=== PATIENT | female | born 2000 | race Caucasian/White ===

== ENCOUNTER 2020-04-02 14:16 | Outpatient (REF) | payer MEDICAID, SELFPAY ==
--- NOTE | 2020-04-02 16:04 | MHC.AU.P13 ---
Hearing Instrument Fitting- Adult- Left Ear Date of Visit: 04/02/20 Hearing Instrument(s) Dispensed: Left Ear: Ginseng Farmer: SHERPA assistant Model: CareinSynceo M70-R Serial Number: [id number] Warranty: 06/16/2023 Battery Size: Rechargeable Color: Black Health Information Director: 0M Type of Dome: Small Vented Type of Wax Guard: CeruDisk Summary of Fitting: Feedback associate manager was run. Target gain set to 80%. Occlusion compensation set to Medium. Patient reported that the volume was comfortable. She reported her voice sounded strange, but thinks it may be that she just needs to get used to having sound in that ear again. Hearing aid care and maintenance were discussed and practiced. Hearing aid was paired to the elzbieta on her phone. Recommendations: Recommendations: Please call our clinic with any questions or concerns. Recommendations: Patient is scheduled to have a remote support session on 04/23/2020 for hearing aid follow-up. Diagnosis Code(s): Primary Diagnosis: H90.72 Mixed HL, Unilateral, Left Ear, W/Unrestricted Contralateral Secondary Diagnosis: N/A Services Performed: Hearing Instrument Services: [place] 3 L Hearing Aid Dispensing: Monaural Dispensing Fee- Left Ear Fitting (Other): Fitting/Orientation/Checking of Hearing Aid Signature: Provider: Carlos Glynn, [facility]
== END 2020-04-02 14:17 | disposition home or self-care (01) ==
LOC: HO.HAP 14:16
PROVIDERS: Visit Provider Family Medicine
DX: Z46.1 Encounter for fitting and adjustment of hearing aid (principal); H90.72 Mixed conductive and sensorineural hearing loss, unilateral, left ear, with unrestricted hearing on the contralateral side
CPT/HCPCS: 92700; V5011; V5241; V5257

== ENCOUNTER 2020-04-21 11:51 | Outpatient (REF) | payer MEDICAID, SELFPAY | END 2020-04-21 11:52 | disposition home or self-care (01) | LOC: HO.LAB 11:51 | PROVIDERS: Visit Provider Internal Medicine | DX: Z20.828 Contact with and (suspected) exposure to other viral communicable diseases (principal) | CPT/HCPCS: C9803; U0003 ==

== ENCOUNTER 2020-04-22 15:02 | Outpatient (REF) | payer MEDICAID, SELFPAY ==
[2020-04-22 16:16] LABS: MANUAL DIFF FLAG NO
[2020-04-22 16:17] LABS: Basophils Absolute Auto 0.1 X10*3/uL (0.0-0.2); Basophils Percent Auto 0.9 % (0-2); Eosinophils Absolute Auto 0.4 X10*3/uL (0.0-0.4); Eosinophils Percent Auto 4.9 % (0-4); Hematocrit 43.8 % (37-47); Hemoglobin 14.4 g/dl (12.0-16.0); Imm Gran Abs Auto 0.03 X10*3/uL (0.00-0.03); Imm Gran Pct Auto 0.3 % (0.0-0.4); Lymphocytes Absolute Auto 1.8 X10*3/uL (1.2-4.9); Lymphocytes Percent Auto 20.8 % (20-40); Mean Corpuscular HGB Conc 32.9 g/dl (31.0-35.0); Mean Corpuscular Hemoglobin 28.3 pg (27.0-33.0); Mean Corpuscular Volume 86.1 fL (80-98); Mean Platelet Volume 11.7 fL (9.4-12.3); Monocytes Absolute Auto 0.4 X10*3/uL (0.1-1.2); Monocytes Percent Auto 4.5 % (2-11); Neutrophils Absolute Auto 6.1 X10*3/uL (2.0-8.3); Neutrophils Percent Auto 68.6 % (45-73); Platelet Count 179 X10*3/uL (160-400); Red Blood Count 5.09 X10*6/uL (4.20-5.50); Red Cell Distribution Width 13.7 % (11.0-16.0); White Blood Count 8.9 X10*3/uL (4.8-10.8)
== END 2020-04-22 15:03 | disposition home or self-care (01) ==
LOC: HO.LAB 15:02
PROVIDERS: Visit Provider Family Medicine
DX: R07.81 Pleurodynia (principal)
CPT/HCPCS: 36415; 85025; 87040

== ENCOUNTER 2020-04-23 15:54 | Outpatient (REF) | payer MEDICAID, SELFPAY ==
--- NOTE | 2020-04-24 13:50 | MHC.AU.P13 ---
Hearing Instrument Follow-Up Date of Visit: 04/24/2020 Left Ear: Content Developer: Phonak Model: Audeo M70-R Serial Number: [id number] Warranty: 06/16/2023 Battery Size: Rechargeable Color: Black Ui Software Developer: 0M Type of Dome: Small Vented Type of Wax Guard: CeruDisk Dispensed By: [facility] Follow-Up Summary: Today's appointment was a Remote Support session. There were no technical issues connecting with the patient today. Patient discussed that she does not feel the hearing aid has been beneficial. She feels it has a strange, hard to describe sound quality that can be distracting. Others have reported she is also still talking loudly, even when she does not think she is. Several adjustments were attempted, such as increasing target or raising/lowering high and low frequency gain separately. We could not find any combination that got rid of the strange sound quality; therefore, programming was kept the same for now. Discussed the nature of patient's sudden single-sided hearing loss, and how it may be that there is too much distortion from the hearing loss itself to use a traditional hearing aid. A CROS system may need to be considered. Patient discussed that when she first developed the sudden left-sided hearing loss in October 2019, she had recently developed a viral illness. It was suspected that she had COVID-19; however, testing was not readily available at the time to confirm. She reports that she has heard of some case studies where COVID patients developed sudden single-sided sensorineural hearing loss, and she questions if this is what happened to her. Steroids were attempted, but did not work. She had her hearing tested several times between October and February, and reports that each test revealed a slight progression of hearing loss from the test before. After more discussion, we decided the patient should come back in person for a quick hearing aid follow-up/hearing re-check, as a change in hearing could explain why she has not been finding the hearing aid beneficial. I can also listen to the hearing aid to make sure it is not a technical issue. Depending on the results of the re-check, we can discuss if further trial/adjustment of the current instrument is needed, or if a different system such as a CROS should be tried. Recommendations: An follow-up was scheduled to monitor progress. Diagnosis Code(s): Primary Diagnosis: H90.72 Mixed HL, Unilateral, Left Ear, W/Unrestricted Contralateral Services Performed: Assorted Hearing Aid Service: No Charge Visit Signature: Provider: Carlos Glynn, [facility]
== END 2020-04-23 15:55 | disposition home or self-care (01) ==
LOC: HO.HAP 15:54
PROVIDERS: PCP Family Medicine; Visit Provider Family Medicine
DX: Z13.89 Encounter for screening for other disorder (principal)
CPT/HCPCS: 92700

== ENCOUNTER 2020-08-15 15:13 | Outpatient (REF) | payer MEDICAID, SELFPAY ==
--- NOTE | 2020-08-18 15:19 | MHC.AU.P13 ---
Hearing Instrument Follow-Up Date of Visit: 08/15/20 Left Ear: Jewelry Mold Maker: Phonak Model: Carloseo M70-R Serial Number: [id number] RepairWarranty: 06/16/2023 Battery Size: Rechargeable Color: Black Animal Biologist: 0M Type of Dome: Small Vented Type of Wax Guard: CeruDisk Follow-Up Summary: Patient arrived for follow-up. When last talking to the patient over remote support, there was a question if there was a change in hearing, as she was not getting much benefit from the hearing aid. She reported that she could not always tell a large difference when she took it off. A quick hearing re-check was performed today. In the left ear, 3-8 kHz has decreased slightly and 500-1000 Hz has improved slightly. Word discrimination was 80% on 02/26/2020 and was 56% today. Patient reports that she does not always realize the benefit while wearing the instrument, but does notice a difference when she takes it off. She does not feel it helps with clarity, but helps with localizing sound around her. She finds that it can have an echo-y quality. Updated programming with today's thresholds. Tried switching to an open dome instead of a vented dome, but patient reported the sound quality was worse. Switched back to vented dome. Realistic expectation discussed. Discussed that the word discrimination/clarity in the left ear is poor, and hearing aids alone cannot fix that. The hearing aid will mostly help her left-sided awareness, environmental perception, and localization, rather than improve word understanding. Discussed the possibility of a CROS system, but patient does not feel that would be as beneficial as a left-sided hearing aid. There are unfortunately few options for single-sided hearing loss at this time, apart from a hearing aid, CROS system, or BAHA (which would require surgery). Patient would likely not yet qualify for a cochlear implant. Patient understands the limitations and expectations. Recommendations: Due to changes in hearing, audiological re-evaluation in 6 months is recommended (either at our clinic or at ENT). Hearing aid follow-up for more adjustments or maintenance as needed. Diagnosis Code(s): Primary Diagnosis: H90.42 SNHL Unilateral Left Side, W/Unrestricted Contralateral Hearing Signature: Provider: Carlos Glynn, [facility]
== END 2020-08-15 15:14 | disposition home or self-care (01) ==
LOC: HO.HAP 15:13
PROVIDERS: Visit Provider Family Medicine
DX: Z13.89 Encounter for screening for other disorder (principal)

== ENCOUNTER 2020-08-25 11:22 | Outpatient (REF) | payer MEDICAID, SELFPAY | END 2020-08-25 11:23 | disposition home or self-care (01) | LOC: HO.HAP 11:22 | PROVIDERS: Visit Provider Family Medicine | DX: Z13.89 Encounter for screening for other disorder (principal) ==

== ENCOUNTER 2020-11-25 14:19 | Outpatient (REF) | payer SELFPAY | END 2020-11-25 14:20 | disposition home or self-care (01) | LOC: HO.HAP 14:19 | PROVIDERS: Visit Provider Family Medicine | DX: Z13.89 Encounter for screening for other disorder (principal) ==

== ENCOUNTER 2020-12-26 16:33 | Outpatient (REF) | payer SELFPAY | END 2020-12-26 16:34 | disposition home or self-care (01) | LOC: HO.HAP 16:33 | PROVIDERS: Visit Provider Family Medicine | DX: H90.42 Sensorineural hearing loss, unilateral, left ear, with unrestricted hearing on the contralateral side (principal) | CPT/HCPCS: V5267 ==

== ENCOUNTER 2021-03-12 14:03 | Outpatient (REF) | payer MEDICARE, MEDICAID, SELFPAY ==
[2021-03-12 14:12] LABS: MANUAL DIFF FLAG NO
[2021-03-12 14:21] LABS: Basophils Absolute Auto 0.1 X10*3/uL (0.0-0.2); Eosinophils Absolute Auto 0.6 X10*3/uL (0.0-0.4); Eosinophils Percent Auto 7.8 % (0-4); Hematocrit 41.9 % (37-47); Hemoglobin 14.1 g/dl (12.0-16.0); Imm Gran Abs Auto 0.01 X10*3/uL (0.00-0.03); Imm Gran Pct Auto 0.1 % (0.0-0.4); Lymphocytes Absolute Auto 2.5 X10*3/uL (1.2-4.9); Lymphocytes Percent Auto 30.9 % (20-40); Mean Corpuscular HGB Conc 33.7 g/dl (31.0-35.0); Mean Corpuscular Hemoglobin 29.3 pg (27.0-33.0); Mean Corpuscular Volume 87.1 fL (80-98); Mean Platelet Volume 12.1 fL (9.4-12.3); Monocytes Absolute Auto 0.6 X10*3/uL (0.1-1.2); Monocytes Percent Auto 7.2 % (2-11); Neutrophils Absolute Auto 4.4 X10*3/uL (2.0-8.3); Platelet Count 191 X10*3/uL (160-400); Red Blood Count 4.81 X10*6/uL (4.20-5.50); Red Cell Distribution Width 13.8 % (11.0-16.0); White Blood Count 8.2 X10*3/uL (4.8-10.8)
== END 2021-03-12 14:04 | disposition home or self-care (01) ==
LOC: HO.LNP 14:03
PROVIDERS: Visit Provider Internal Medicine Gastroenterology
DX: K85.90 Acute pancreatitis without necrosis or infection, unspecified (principal); E86.0 Dehydration
CPT/HCPCS: 82040; 83735; 84100; 84132; 84134; 84450; 84478; 85025

== ENCOUNTER 2021-04-24 12:36 | Outpatient (REF) | payer MEDICARE, MEDICAID, SELFPAY ==
--- NOTE | 2021-04-24 15:39 | MHC.AU.FUL ---
Hearing Instrument Follow-Up Date of Visit: 04/24/21 Left Ear: Promotion Officer: Phonak Model: Audeo M70-R Serial Number: [id number] Repair Warranty: 06/16/2023 Battery Size: Rechargeable Color: Black Orange Picker Machine Operator: 0M Type of Dome: Small Vented Type of Wax Guard: CeruDisk Dispensed By: [facility] Follow-Up Summary: Patient reports that for the past few weeks, her hearing aid has been randomly turning off while she wears it. It does not give any warning, such as a low battery beep, when this happens. When it has happened, she has checked the battery life by placing it in the driver helper, and the indicator lights always show there was still ample charge left on it. She knows it is shutting down (as opposed to have a faulty quality assurance/r&d lab technician or other issue), as when it occurs she will press the button and the indicator light blinks green/start-up teddy plays. It happened again while we were talking in the office today. I tried to manually restart it, and it would turn on. It will be sent to [employer] for repair. Recommendations: Patient will be contacted when materials have arrived. Diagnosis Code(s): Primary Diagnosis: H90.42 SNHL Unilateral Left Side, W/Unrestricted Contralateral Hearing Signature: Provider: Carlos Glynn, [facility]
== END 2021-04-24 12:37 | disposition home or self-care (01) ==
LOC: HO.HAP 12:36
PROVIDERS: Visit Provider Family Medicine
DX: Z46.1 Encounter for fitting and adjustment of hearing aid (principal); H90.42 Sensorineural hearing loss, unilateral, left ear, with unrestricted hearing on the contralateral side
CPT/HCPCS: 92592

== ENCOUNTER 2021-05-13 15:01 | Outpatient (REF) | payer MEDICARE, MEDICAID, SELFPAY | END 2021-05-13 15:02 | disposition home or self-care (01) | LOC: HO.HAP 15:01 | PROVIDERS: Visit Provider Family Medicine | DX: Z13.89 Encounter for screening for other disorder (principal) ==

== ENCOUNTER 2021-09-15 16:18 | Outpatient (REF) | payer SELFPAY | END 2021-09-15 16:19 | disposition home or self-care (01) | LOC: HO.HAP 16:18 | PROVIDERS: Visit Provider Family Medicine | DX: Z46.1 Encounter for fitting and adjustment of hearing aid (principal); H90.42 Sensorineural hearing loss, unilateral, left ear, with unrestricted hearing on the contralateral side | CPT/HCPCS: V5267 ==

== ENCOUNTER 2022-03-04 13:02 | Emergency (ER) | payer MEDICARE, MEDICAID, SELFPAY ==
--- NOTE | ~2022-03-04 | IR_ITS ---
EXAMINATION: GASTROSTOMY TUBE REPLACEMENT CLINICAL INFORMATION: Gastrostomy tube fell out last night. Difficulty in replacing catheter in the emergency room. COMPARISON: None. TECHNIQUE: Fluoroscopic-guided replacement of gastrostomy tube. CONSCIOUS SEDATION: The patient received intravenous conscious sedation under my direct supervision. A registered nurse monitored the patient and the patient's vital signs throughout the procedure. The total sedation time was 22 minutes. A total of 2 mg of Versed and 100 mcg fentanyl was given for good effect. FINDINGS: Informed consent was obtained from the patient prior to the procedure. During this process, the procedure and potential alternatives were explained, along with the intended outcome and benefits. The risks of the procedure, as well as the risk of not doing the procedure, were discussed. The patient was given the opportunity to ask questions regarding the procedure and appeared competent to make medical decisions. A signed consent form which documents this discussion was placed in the medical record. A 5 Vietnamese dilator and guidewire were used to gain entrance to the stomach. A small amount of contrast was administered through the dilator demonstrating positioning within the stomach. A 7 Vietnamese dilator was then placed through an 18-gauge gastrostomy tube to add stiffness and attempt to place over the wire, which was unsuccessful due to patient having severe pain. Conscious sedation was then administered, but patient still had pain related to attempts at placement of catheter. A 5 Vietnamese catheter was then placed through a 14-gauge gastrostomy tube and over wire with sedation combination of the catheter and gastrostomy tube was eventually placed within the stomach with retention balloon filled with 5 mL of saline. If a larger gastrostomy tube needs to be placed, consideration of allowing the traumatized site to heal to some extent with balloon angioplasty being performed under sedation at another time with placement of a larger gastrostomy tube. Patient refused upsizing of a gastrostomy tube this time. IR/IR replace tube gastr,ceco,oth IMPRESSION: Replacement of gastrostomy tube with 14 Vietnamese gastrostomy tube as described above. FLUOROSCOPY TIME: 1 minute.
[2022-03-04 13:29] VITALS: BP 133/88; PULSE 120; RESP 18; TEMP 36.6; O2SAT 99; BMI 21.9
--- NOTE | 2022-03-04 13:42 | PC.NURSE ---
Pt fully alert, oriented, states that she accidentally pulled her g-tube out in her sleep. Pt did bring gtube with her, gtube appears to have come out in its entirety. G-tube site cleansed with NS, no foul drainage or odor, small amount of sero-sanguineous drainage. moist gauze in place over site
--- NOTE | 2022-03-04 15:24 | ED.GENADULT ---
HPI - General Adult General Chief complaint: General Medical <Mague Farias CNP - Last Filed: 03/04/22 19:05> Stated complaint: G Tube Placement <Mague Farias CNP - Last Filed: 03/04/22 19:05> Time Seen by Provider: 03/04/22 13:37 <Mague Farias CNP - Last Filed: 03/04/22 19:05> Source: patient <Mague Mojica QUETA Farias - Last Filed: 03/04/22 19:05> Mode of arrival: ambulatory <Mague Farias CNP - Last Filed: 03/04/22 19:05> Limitations: no limitations <Mague Farias CNP - Last Filed: 03/04/22 19:05> History of Present Illness HPI narrative: Patient presents emergency department for evaluation of a dislodged G-tube. She states that when she awoke at approximately 11:30 she accidentally dislodged the G-tube, believes that he got caught in her hand. She brought in her prior G-tube, balloon is intact. Typically uses a 20 Gabonese to with 6 cc balloon. Reports she to has been in place for approximately 2 years secondary to her gastroparesis. <Mague Farias CNP - Last Filed: 03/04/22 19:05> Related Data Allergies/adverse reactions: Allergies Allergy/AdvReac Type Severity Reaction Status Date / Time ketorolac [From TORADOL] Allergy Unknown ANAPHYLAXIS Unverified 02/28/20 19:44 haloperidol [From HALDOL] AdvReac Unknown DYSTONIA Unverified 02/28/20 19:44 metoclopramide [From REGLAN] AdvReac Unknown DYSTONIA Unverified 02/28/20 19:44 prochlorperazine AdvReac Unknown DYSTONIA Unverified 02/28/20 19:44 [From COMPAZINE] <Mague Farias CNP - Last Filed: 03/04/22 19:05> Review of Systems Review of Systems: Constitutional: No weight loss, fever, chills, weakness or fatigue. Skin: No rash or itching. Cardiovascular: No chest pain, chest pressure or chest discomfort. No palpitations or pedal edema. Respiratory: No shortness of breath, cough or sputum production. Gastrointestinal: No anorexia, nausea, vomiting or diarrhea. No abdominal pain or blood in stool. Genitourinary: No burning micturition. No urinary frequency or incontinence. Musculoskeletal: No muscle pain, back pain, joint pain or stiffness. Psychiatric: No depression or anxiety. <Mague Farias CNP - Last Filed: 03/04/22 19:05> Yes all other systems are reviewed and are negative <Mague Farias CNP - Last Filed: 03/04/22 19:05> [facility] Past Medical History Attestation statement: The following information was validated with the patient. <Mague Farias CNP - Last Filed: 03/04/22 19:05> Source: old records reviewed <Mague Farias CNP - Last Filed: 03/04/22 19:05> Social History Social History: Social History Advance Directives: Yes Advance Directives Information Provided: Yes Advance Directives on File: No <Mague Farias CNP - Last Filed: 03/04/22 19:05> Physical Exam ED Vital Signs: Vital Signs - 24 hr 03/04/22 13:29 03/04/22 16:16 03/04/22 19:28 Temperature 98 F Pulse Rate 120 H 89 75 Respiratory Rate 18 Blood Pressure 133/88 116/69 Pulse Oximetry 99 100 99 Oxygen Delivery Method Room Air Room Air Room Air BMI result Body Mass Index 21.9 <Mague Farias CNP - Last Filed: 03/04/22 19:05> Vital Signs - 24 hr 03/04/22 13:29 03/04/22 16:16 03/04/22 19:28 Temperature 98 F Pulse Rate 120 H 89 75 Respiratory Rate 18 Blood Pressure 133/88 116/69 Pulse Oximetry 99 100 99 Oxygen Delivery Method Room Air Room Air Room Air BMI result Body Mass Index 21.9 <Evangelist Garcia MD - Last Filed: 03/04/22 22:58> Appearance: Alert.?Oriented to person, place and time. No acute distress.?Normal affect. Eyes: Pupils equal, round and reactive to light.? ENT: Pharynx normal.?? Neck: Normal inspection.? Neck supple.?? CVS: Heart sounds normal. Normal heart rate and rhythm.? Pulses normal.?? Respiratory: No respiratory distress.? Lung sounds clear to auscultation bilaterally?? Abdomen: Soft and non-tender. Normoactive bowel sounds. Stoma to abdomen without surrounding erythema, warmth, purulent drainage, or active bleeding Skin: Skin warm and dry.? Normal skin color.? ?? Extremities: No lower extremity edema.? Neuro: Moves all extremities spontaneously. Sensation intact bilaterally. Ambulates with normal steady gait. <Mague Farias CNP - Last Filed: 03/04/22 19:05> Course Course Course Narrative: Patient is a 21-year-old female with a past medical history of gastroparesis and SMA syndrome who presents emergency department for evaluation of a dislodged G-tube. Tube placement is not new for her, tract has been in place for 2 years, does not recall the most recent tube change. She is followed by Gastroenterology at [facility]. No 20 Gabonese G-tube is available in emergency department or in supply. Attempted 18 Gabonese tube insertion, able to insert the to approximately 1 cm before meeting resistance and unable to proceed. ED Attending Dr. Garcia attempted re-insertion as well, unsuccessful. Patient to receive morphine IV for pain, patient has a ride home. Will attempt 16 Gabonese insertion, is unable to insert will contact IR for insertion. <Mague Farias CNP - Last Filed: 03/04/22 19:05> Reevaluation(s) Reevaluation #1: Unable to insert 16 Gabonese G-tube. Contacting Interventional Radiology for assistance with placement. Patient updated on plan of care. <Mague Farias CNP - Last Filed: 03/04/22 19:05> Time: 16:00 <Mague Farias CNP - Last Filed: 03/04/22 19:05> Reevaluation #2: Patient has returned from Interventional Radiology, patient required moderate sedation for G-tube insertion. Successful insertion of 14 Gabonese tube. Tolerated procedure well. Patient signed out to Jorge LAWRENCE pending continued monitoring of vital signs and mentation prior to discharge. <Mague Farias CNP - Last Filed: 03/04/22 19:05> Time: 18:59 <Mague Farias CNP - Last Filed: 03/04/22 19:05> Medical Decision Making MDM Narrative Medical decision making narrative: Attending: Patient was seen [id number] by me, attempt was made to replace the patient's G-tube with an 18 Gabonese 1, was unable to pass it more than about a cm and a half. <Evangelist Garcia MD - Last Filed: 03/04/22 22:58> Medical Records Medical records reviewed: Yes I reviewed the patient's medical records. <Mague Farias CNP - Last Filed: 03/04/22 19:05> Discharge Plan Discharge Clinical Impression: Dislodged gastrostomy tube <Mague Farias CNP - Last Filed: 03/04/22 19:05> Patient Disposition: Home, Self-Care <Mague Farias CNP - Last Filed: 03/04/22 19:05> Additional Instructions: Your G-tube was replaced with a 14 Gabonese tube under moderate sedation through Interventional Radiology. Contact your gastroenterology for further follow-up and evaluation Return to the emergency department with any new or worsening symptoms or concerns. <Mague Farias CNP - Last Filed: 03/04/22 19:05> Referrals: Leah Back MD [Primary Care Provider] - 3 days <Mague Farias CNP - Last Filed: 03/04/22 19:05> Interventions: ED Discharge Assessment Last Done: 03/04/22 21:16 <Mague Farias CNP - Last Filed: 03/04/22 19:05> Discharge Date/Time: 03/04/22 21:19 <Mague Farias CNP - Last Filed: 03/04/22 19:05>
[2022-03-04] MEDS: Morphine Sulfate 4 MG/ML CARTRIDGE 2 MG IVPUSH (15:25)
[2022-03-04 16:16] VITALS: PULSE 89; O2SAT 100
[2022-03-04 19:28] VITALS: BP 116/69; PULSE 75; O2SAT 99
== END 2022-03-04 21:19 | disposition home or self-care (01) ==
PROVIDERS: Radiology Diagnostic Radiology; Emergency Provider Emergency Medicine; PCP Family Medicine
PROC: (CPT 43762; principal; 2022-03-04 16:30)
DX: K31.84 Gastroparesis (principal); Z43.1 Encounter for attention to gastrostomy; Z79.899 Other long term (current) drug therapy
CPT/HCPCS: 49450; 96374; 99152; 99282; 99284; J2270

== ENCOUNTER 2022-04-02 13:08 | Outpatient (REF) | payer SELFPAY | END 2022-04-02 13:09 | disposition home or self-care (01) | LOC: HO.HAP 13:08 | PROVIDERS: Visit Provider Family Medicine | DX: Z46.1 Encounter for fitting and adjustment of hearing aid (principal); H90.42 Sensorineural hearing loss, unilateral, left ear, with unrestricted hearing on the contralateral side | CPT/HCPCS: V5267 ==

== ENCOUNTER 2022-10-26 12:52 | Outpatient (REF) | payer MEDICARE, MEDICAID, SELFPAY | END 2022-10-26 12:53 | disposition home or self-care (01) | LOC: HO.HAP 12:52 | PROVIDERS: Visit Provider Family Medicine | DX: Z46.1 Encounter for fitting and adjustment of hearing aid (principal); H90.42 Sensorineural hearing loss, unilateral, left ear, with unrestricted hearing on the contralateral side | CPT/HCPCS: 92592; V5020 ==

== ENCOUNTER 2022-11-02 11:25 | Outpatient (REF) | payer MEDICARE, MEDICAID, SELFPAY ==
--- NOTE | 2022-11-02 12:01 | MHC.AU.FUL ---
Hearing Instrument Follow-Up Date of Visit: 11/02/22 Left Ear: Ramesh Arthur 70-R Charan #[id number] Repair Warranty: 06/16/2023 Loss and Damage Warranty: 06/16/2023 Battery Size: Rechargeable Supervisor Last Model Department: 0M Type of Dome: Small Vented Type of Wax Guard: CeruDisk Dispensed By: [facility] Date of Fittin04/02/2020 Follow-Up Summary: The patient is here today for a left hearing aid check. She was recently in office for programming following an updated audiogram from [facility] dated 09/01/22. She finds that she is currently missing low/mid frequencies and is still missing speech sounds, as noted when sitting in the passenger seat of a car and listening to the charter bus driver speak. Visual inspection of the hearing aid is unremarkable. In [employer] I noted that the reference audiogram is the previous 2020 audiogram. I re-programmed the hearing aid to the most recent 2022 audiogram and noted gain is set to 90%. I increased target gain to 100% and decreased occlusion compensation to off. Christine noted improved sound quality. I further increased low/mid frequency gain by 3 clicks per patient request. She likes the current setting and will try this. I encouraged her to schedule another check should further adjustments be needed. She indicated understanding. Diagnosis Code(s): Primary Diagnosis: H90.42 SNHL Unilateral Left Side, W/Unrestricted Contralateral Hearing Secondary Diagnosis: H93.12 Tinnitus, Left Ear Signature: Provider: Carlos Summers, [facility]
== END 2022-11-02 11:26 | disposition home or self-care (01) ==
LOC: HO.HAP 11:25
PROVIDERS: Visit Provider Family Medicine
DX: Z13.89 Encounter for screening for other disorder (principal)

== ENCOUNTER 2023-03-25 12:56 | Outpatient (REF) | payer SELFPAY | END 2023-03-25 12:57 | disposition home or self-care (01) | LOC: HO.HAP 12:56 | PROVIDERS: Visit Provider Family Medicine | DX: Z46.1 Encounter for fitting and adjustment of hearing aid (principal); H90.3 Sensorineural hearing loss, bilateral | CPT/HCPCS: V5267 ==

== ENCOUNTER 2024-01-04 16:09 | Outpatient (REF) | payer MEDICARE, MEDICAID, SELFPAY ==
--- NOTE | 2024-01-05 13:05 | MHC.AU.HA3 ---
Hearing Instrument Follow-Up- Binaural Date of Visit: 01/04/25 Left Ear: Make, Model, Color, Serial Number: Ramesh Arthur 70-R Black #[id number] Animator Repair Warranty: 06/16/2023 Animator Loss and Damage Warranty: 06/16/2023 [facility] Service Plan: Battery Size: Rechargeable Counselor Aid/Slim Tube: 0M Earmold/Dome/CShell/SlimTip: Small Vented Type of Wax Guard: CeruDisk Dispensed By: [facility] Date of Fittin04/02/2020 Follow-Up Summary: LHA dropped off, not charging consistently. Tried two chargers in our office, light will go from solid red to green to blinking yellow and back to red, does not actually charge as low battery indicator plays shortly after aid comes off soil and plant scientist. No firmware update available. Pt ok to send out, declined loaner. Will contact once aid arrives back in office. Out of warranty, bill to [employer]. Recommendations: Recommendations: Patient will be contacted when materials have arrived. Diagnosis Code(s): Primary Diagnosis: H90.42 SNHL Unilateral Left Side, W/Unrestricted Contralateral Hearing Secondary Diagnosis: H93.12 Tinnitus, Left Ear Signature: Provider: Carlos George, [facility]
== END 2024-01-04 16:10 | disposition home or self-care (01) ==
LOC: HO.HAP 16:09
PROVIDERS: Visit Provider Family Medicine
DX: Z13.89 Encounter for screening for other disorder (principal)

== ENCOUNTER 2024-01-18 14:48 | Outpatient (REF) | payer MEDICARE, MEDICAID, SELFPAY | END 2024-01-18 14:49 | disposition home or self-care (01) | LOC: HO.HAP 14:48 | PROVIDERS: Visit Provider Family Medicine | DX: Z46.1 Encounter for fitting and adjustment of hearing aid (principal); H90.42 Sensorineural hearing loss, unilateral, left ear, with unrestricted hearing on the contralateral side | CPT/HCPCS: V5014 ==